=== PATIENT | male | born 1945 | race Caucasian/White ===

== ENCOUNTER 2018-09-20 16:43 | Emergency (ER) | payer MEDICARE, OTHER ==
[~2018-09-20] VITALS: Ht 182.9 cm; Wt 77.0 kg
--- NOTE | 2018-09-20 16:53 | NUR ---
73 YR OLD MALE ARRIVED VIA EMS. PER REPOR PT AT [facility]. HAD ABD PAIN AND NAUSEA, WENT INTO BR HAD SYNCOPAL EVENT. ?VASOVAGEL. PT HIT HEAD, LAC ABOVE LEFT EYEBROW, C/O MOELLER. BS 96, A&OX4, GCS 15. PT GIVEN PO ZOFRAN [employer]IC.
[2018-09-20 16:58] VITALS: BP 114/61
--- NOTE | 2018-09-20 17:03 | NUR ---
REPORT TO CHAGO BURNETT
--- NOTE | 2018-09-20 17:18 | NUR ---
late entry: lab at bedside to draw blood. pt states he is a "hard stick" and begins yelling at laboratory specialist when lab attempts blood draw, "stop it, fuck you, that hurts, fuck this". pt yelling at rn when asking for history and symptoms, rn asked pt to not swear and yell at staff. pt states "fuck this, give me clothes, [facility], I don't know why they didn't take me there, I told them to, I'm leaving". MD notified. Pt educated of risk of leaving against medical advice without being further evaluated. Pt stated "I don't fucking care if I drop when I walk out of here". Pt AOx4, neurologically intact, no n/t, no weakness, PERRL. pt given clothes as he vomited on his other clothing. pt states "I'm calling a cab to take me to [facility]". AMA paperwork signed.
== END 2018-09-20 17:24 | disposition left against medical advice (07) ==
LOC: ED 17:15
DX: R55 Syncope and collapse (principal)
CPT/HCPCS: 93005; 99283